=== PATIENT | female | born 1995 | race Caucasian/White ===

== ENCOUNTER 2022-07-27 17:46 | Emergency (ER) | payer OTHER, SELFPAY ==
[2022-07-27 17:53] VITALS: BP 141/93; PULSE 118; RESP 18; TEMP 36.6; O2SAT 97; BMI 33.6
[2022-07-27 18:57] LABS: COVID-19 Test Negative (Negative); IDNOW Serial# 16C4AD1C
[2022-07-27 18:58] LABS: IDNOW Serial# BCCEAD1C; Influenza A Negative (Negative); Influenza B2 Negative (Negative)
[2022-07-27 20:22] VITALS: BP 134/88; PULSE 110; RESP 18; TEMP 35.9; O2SAT 98
--- NOTE | 2022-07-27 20:56 | PC.NURSE ---
pt requests ice for headache, 1 pack applied to back of neck, the other, to forehead, call greer within reach- awaiting ED provider
--- NOTE | 2022-07-27 21:44 | ED_ITS ---
HPI - URI/Sore Throat General Chief Complaint: Upper Respiratory Symptoms Stated Complaint: Head pressure Time Seen by Provider: 07/27/22 21:30 Source: patient and family (Mother, trace) Mode of arrival: ambulatory Limitations: no limitations History of Present Illness HPI Narrative: 27-year-old female who presents emergency department for evaluation productive cough x3 weeks, facial pain and facial swelling x3 days. Patient states that she has had a productive cough for approximately 3 weeks. She states the cough is productive of green thick sputum with occasional blood in the sputum. She states she was seen by a provider told her that she had a viral infection. She states that her symptoms are not getting better which is concerning to her. She also states that over the past several days she has developed pressure in her forehead and behind her eyes and nose, she states she wakes up in the morning and her eyes are puffy and her face is swollen. She states the pressure-like pain is worse if she lies down flat her bends over. She denied fever or chills. She has had rhinorrhea. She denies sore throat. She states that she has had shortness of breath dyspnea on exertion. Related Data Previous Rx's Medication Instructions Recorded doxycycline hyclate 100 mg tablet 100 mg PO Q12H 10 days #20 tabs 07/27/22 fluconazole 150 mg tablet See Rx Instructions .Route 07/27/22 (Diflucan) .COMPLEX #2 tabs Allergies Allergy/AdvReac Type Severity Reaction Status Date / Time Penicillins Allergy Unknown Hives Verified 06/21/21 13:54 Review of Systems Review of Systems: Yes all other systems are reviewed and are negative [facility] Past Medical History Attestation statement: The following information was validated with the patient. [facility] Narrative: Social history: She denies tobacco use. She occasionally drinks alcohol. She denies drug use. Social History Social History Advance Directives: No Advance Directives Information Provided: Yes Physical Exam Vital Signs: Vital Signs: Last Vital Signs Temp 96.7 F L 07/27/22 20:22 Pulse 110 H 07/27/22 20:22 Resp 18 07/27/22 20:22 BP 134/88 07/27/22 20:22 Pulse Ox 98 07/27/22 20:22 O2 Del Method 07/27/22 20:22 BMI result Body Mass Index 33.6 Const: Other: Very pleasant and cooperative female patient, does not appear to be in distress, answers all questions appropriately General: cooperative HEENT: Head: Yes normal to inspection, Yes normocephalic and Yes atraumatic Ears: external ears normal General nose exam: Normal external nose present Face and sinus: Yes sinus tenderness (Bilateral maxillary and frontal sinus tenderness) Mouth: Normal oral and palatal mucosa present Throat: Yes posterior oropharynx normal Eyes: General: appearance normal, both eyes and all related structures Pupils: Equal, round and reactive pupils present Neck: Neck: Yes normal visual inspection, Yes no lymphadenopathy, Yes trachea midline and Yes supple Chest: Chest palpation & inspection: normal inspection of the chest and normal palpation of entire chest wall Resp: Effort & Inspection: normal respiratory effort and able to speak in complete sentences Auscultation: clear to auscultation bilaterally Cardio: Rate: regular rate Rhythm: regular rhythm Heart sounds: S1 no rmal heart sound present, S2 normal heart sound present and no murmurs GI: Inspection: Yes normal to inspection Palpation (GI): Soft to palpation, nontender and no guarding Auscultation: normal bowel sounds : General: Yes no CVA tenderness Back/Spine/Pelvis: Back: no CVA tenderness Skin: General skin exam: no rashes or lesions noted Neuro: Cranial nerves: Yes Equal, round and reactive pupils present Cognition (Neuro): normal cognition Motor exam (neuro): 5/5 motor strength present throughout Extrem: General: Yes normal to inspection Psych: Appearance: grossly normal Speech and movement: Normal speech and movement present Affect: normal affect Attitude: cooperative Medical Decision Making Medical Decision Making MDM Narrative: 27-year-old female who presents emergency department for evaluation of cough productive of thick, green sputum with streaks of blood times 2-3 weeks, 3 days frontal or maxillary sinus pressure worse with bending over and lying flat, shortness of breath and dyspnea on exertion. Patient's vital signs were normal. Physical examination did reveal tenderness palpation of her frontal and maxillary sinuses bilaterally with normal lung exam. Patient had a COVID-19 and influenza tests which were negative. Concerned that the patient may have had a viral infection but now may have a bacterial infection causing her continued symptoms and also she may now have sinusitis. I did discuss this with the patient and the patient's mother. The patient will be started on doxycycline 100 mg q.12 hours times 10 days. She was advised to take Tylenol and ibuprofen for pain and fevers well. Patient states that she almost always gets yeast infections when she is on antibiotics therefore she was given a prescription for Diflucan 150 mg tablets 1 pill at the start of her used infection and 1 pill 1 week later. Differential Diagnosis Differential diagnosis includes but is not limited to pneumonia, bronchitis, viral syndrome, sinusitis, COVID-19, influenza Lab Data MDM Lab Attestation statement: I reviewed the patient's lab results. My independent interpretation of the patient's labs as follows: COVID-19 and influenza were negative Labs: Lab Results 07/27/22 07/27/22 Range/Units 18:41 18:41 COVID-19 ([facility]IL[facility]) Negative (Negative) COVID-19 Clin Com See Note Influenza Type A ([facility]) Negative (Negative) Influenza Type B ([facility]) Negative (Negative) Influenza A & B Note See Note Independent Historian Clinical information obtained from an independent historian. History obtained from or confirmed by: Parent (Mother) Discharge Plan Discharge Clinical Impression: Acute bronchitis Qualifiers: Bronchitis organism: unspecified organism Qualified Code(s): J20.9 - Acute bronchitis, unspecified Sinusitis Qualifiers: Sinusitis location: maxillary Chronicity: acute Recurrence: non-recurrent Qualified Code(s): J01.00 - Acute maxillary sinusitis, unspecified Patient Disposition: Home, Self-Care Instructions: Sinusitis (ED), Acute Bronchitis (ED) Additional Instructions: Your COVID-19 and influenza tests were negative. Your symptoms are concerning for a sinus infection and bronchitis. Take doxycycline 100 mg, 1 pill every 12 hours for 10 days Take ibuprofen 200 mg pills, 2 pills every 6 hours as needed for pain. Take Tylenol (acetaminophen) 500 mg pills, 2 pills every 4 to 6 hours as needed for pain. If you developed signs and symptoms of a yeast infection (vaginal itchiness, swelling, whitish discharge) then take Diflucan (fluconazole) 150 mg once and then repeat the dose in 1 week. Follow-up with your doctor in 2 days. Please return to the emergency department if your symptoms get worse or if you develop any symptoms that are concerning to you. Prescriptions: New doxycycline hyclate 100 mg tablet 100 mg PO Q12H 10 Days Qty: 20 0RF fluconazole [Diflucan] 150 mg tablet See Rx Instructions .ROUTE .COMPLEX Qty: 2 0RF Rx Instructions: 150 mg orally ;Take 1 pill now the repeat 1 pill in 1 week
[2022-07-27] MEDS: Doxycycline Monohydrate 100 MG CAPSULE PO (21:54)
== END 2022-07-27 21:59 | disposition home or self-care (01) ==
PROVIDERS: Emergency Provider Emergency Medicine Emergency Medical Services
DX: J20.9 Acute bronchitis, unspecified (principal); J01.00 Acute maxillary sinusitis, unspecified; Z20.822 Contact with and (suspected) exposure to COVID-19; Z20.828 Contact with and (suspected) exposure to other viral communicable diseases
CPT/HCPCS: 87502; 87635; 99283